=== PATIENT | male | born 1955 | race Caucasian/White ===

== ENCOUNTER 2023-03-26 17:05 | Inpatient (IN) | payer BC, OTHER ==
[2023-03-26] MEDS ORDERED: ASPIRIN 81 MG CHEWABLE TABLET ONE (17:46)
[2023-03-26 17:54] LABS: Absolute Lymphocytes (CBC) 2.5 K/uL (0.7-4.9); Hematocrit 45.4 % (39.6-49.0); Lymphocytes % 32.1 % (15.3-44.8); MCV 89.3 fL (80-100); Platelets 190 thou/uL (152-406); RBC Red Blood Cell Count 5.08 M/uL (4.33-5.43)
[2023-03-26 17:59] LABS: Protime INR 0.99
[2023-03-26 18:14] LABS: ALT/SGPT 34 U/L (16-61); AST/SGOT 17 U/L (15-37); Albumin 3.9 g/dL (3.4-5.0); Alkaline Phosphatase 46 U/L (45-117); BUN Blood Urea Nitrogen 17 mg/dL (7-18); Bicarbonate 27 mEq/L (21-32); Bilirubin Total 0.4 mg/dL (0.2-1.0); Glomerular Filtration Rate 84 ml/min (=/>90); Glucose Level 139 mg/dL (74-106); Magnesium 2.2 mg/dL (1.6-2.4); NT PRO-BNP 132 pg/mL (<125); Potassium 3.8 mEq/L (3.5-5.1); Protein, Total 7.5 g/dL (6.4-8.2); Sodium Level 136 mEq/L (136-145)
--- NOTE | 2023-03-26 18:21 | RAD REPORT ---
EXAM DESCRIPTION: Ricky Single View03/26/2023 5:57 pm CLINICAL HISTORY: Chest pain COMPARISON: none FINDINGS: The lungs appear clear of acute infiltrate. The heart appears borderline enlarged IMPRESSION: No acute abnormalities displayed
[2023-03-26 18:27] LABS: Bilirubin Direct < 0.1 mg/dL (0-0.2); Bilirubin Indirect, Calculated ND mg/dL (0.2-0.8)
[2023-03-26 18:29] LABS: Troponin High Sensitivity 63.4 pg/mL (<58.9)
--- NOTE | 2023-03-26 18:38 | ER ---
Nurse's Notes [facility] Name: Nir Kang Age: 68 yrs Sex: Male : 1955 Arrival Date: 03/26/2023 Time: 17:05 Bed 3 Private MD: Diagnosis: Unstable angina Presentation: 03/26 17:18 Chief complaint: Patient states: Chest pain to the center of his chest that radiates to cm10 his throat onset today at 1440. Pt states that he was laying in bed on his stomach when it began. Pt's O2 sat 100% on RA but requesting to be put on oxygen. Coronavirus screen: Client denies travel out of the [place] in the last 14 days. Ebola Screen: Patient denies travel to an Ebola-affected area in the 21 days before illness onset. No symptoms or risks identified at this time. Initial Sepsis Screen: Does the patient meet any 2 criteria? No. Patient's initial sepsis screen is negative. Does the patient have a suspected source of infection? No. Patient's initial sepsis screen is negative. Risk Assessment: Do you want to hurt yourself or someone else? Patient reports desire/thoughts of hurting themselves or someone else. Provider notified. Onset of symptoms was March 26, 2023. 17:18 Method Of Arrival: Ambulatory cm10 17:18 Acuity: DAGMAR 2 cm10 Historical: - Allergies: 17:20 No Known Allergies; cm10 - PMHx: 17:20 Diabetes mellitus; cm10 18:02 Hypercholesterolemia; sb4 - PSHx: 17:20 None; cm10 - Immunization history:: Adult Immunizations unknown. - Social history:: Smoking status: unknown. - Family history:: Father has/had heart disease. Screenin:25 [facility] ED Fall Risk Assessment (Adult) History of falling in the last 3 months, aa5 including since admission No falls in past 3 months (0 pts) Confusion or Disorientation No (0 pts) Intoxicated or Sedated No (0 pts) Impaired Gait No (0 pts) Mobility Assist Device Used No (0 pt) Altered Elimination No (0 pt) Score/Fall Risk Level 0 - 2 = Low Risk Oriented to surroundings, Maintained a safe environment, Educated pt \T\ family on fall prevention, incl call for assistance when getting out of bed. Abuse screen: Denies threats or abuse. Nutritional screening: No deficits noted. Tuberculosis screening: No symptoms or risk factors identified. Assessment: 17:25 General: Appears comfortable, Behavior is calm, cooperative. Pain: Complains of pain in aa5 chest Pain currently is 0 out of 10 on a pain scale. Pain began today Is episodic. Neuro: Level of Consciousness is awake, alert, obeys commands, Oriented to person, place, time, situation. Cardiovascular: Heart tones S1 S2 present Rhythm is regular. Respiratory: Airway is patent Respiratory effort is even, unlabored, Respiratory pattern is regular, symmetrical, Breath sounds are clear bilaterally. GI: Abdomen is round non-distended, Bowel sounds present X 4 quads. Abd is soft and non tender X 4 quads. Reports nausea with chest pain earlier today. Patient currently denies nausea, vomiting. : No signs and/or symptoms were reported regarding the genitourinary system. EENT: Reports sore throat . Derm: Skin is pink, warm \T\ dry. Musculoskeletal: Range of motion: intact in all extremities. 18:45 Reassessment: Patient is alert, oriented x 3, equal unlabored respirations, skin aa5 warm/dry/pink. Patient denies pain at this time. 20:05 General: Appears in no apparent distress. comfortable, Behavior is calm, cooperative. lg3 Pain: Denies pain. Neuro: No deficits noted. Brown Agitation-Sedation Scale (RASS): 0 - Alert and Calm Level of Consciousness is awake, alert, obeys commands, Oriented to person, place, time, situation. Cardiovascular: No deficits noted. Denies chest pain, shortness of breath, Capillary refill < 3 seconds Clubbing of nail beds is absent JVD is absent Patient's skin is warm and dry. Respiratory: No deficits noted. Airway is patent Respiratory effort is even, unlabored, Respiratory pattern is regular, symmetrical, Breath sounds are clear bilaterally. GI: No deficits noted. No signs and/or symptoms were reported involving the gastrointestinal system. Abdomen is round non-distended. : No deficits noted. No signs and/or symptoms were reported regarding the genitourinary system. EENT: No deficits noted. No signs and/or symptoms were reported regarding the EENT system. Derm: No deficits noted. No signs and/or symptoms reported regarding the dermatologic system. Skin is intact, is healthy with good turgor, Skin is dry, Skin is normal, Skin temperature is warm. Musculoskeletal: No deficits noted. No signs and/or symptoms reported regarding the musculoskeletal system. Circulation, motion, and sensation intact. Range of motion: intact in all extremities. 20:38 General: attempted to call report. nurse not available and will call back per lg3 Vital Signs: 17:18 BP 164 / 118; Pulse 78; Resp 18; Temp 97.7; Pulse Ox 100% ; Weight 105.23 kg; Height 5 cm10 ft. 10 in. ; Pain 10/10; 17:45 BP 157 / 97; Pulse 72; Resp 18 S; Pulse Ox 100% on 2 lpm NC; Pain 0/10; aa5 18:45 BP 153 / 83; Pulse 71; Resp 18 S; Pulse Ox 99% on 2 lpm NC; aa5 20:05 BP 156 / 82; Pulse 72; Resp 21 S; Pulse Ox 100% on 2 lpm NC; Pain 0/10; lg3 17:18 Body Mass Index 33.29 (105.23 kg, 177.8 cm) cm10 17:18 Pain Scale: Adult cm10 17:45 Pain Scale: Adult aa5 20:05 Pain Scale: Adult lg3 ED Course: 17:06 Patient arrived in ED. mg5 17:18 Bernardo Rudolph MD is Attending Physician. addis 17:18 Zofia Ruvalcaba PA-C is PHCP. sb4 17:19 Zofia Ruvalcaba PA-C is PHCP. sb4 17:19 Bernardo Rudolph MD is Attending Physician. sb4 17:20 Triage completed. cm10 17:21 Arm band placed on Patient placed in an exam room, on a stretcher, on oxygen, on cm10 monitoring engineer, on pulse oximetry. 17:23 Rashida Aguilar RN is Primary Nurse. aa5 17:25 Patient has correct armband on for positive identification. Placed in gown. Bed in low aa5 position. Call light in reach. Side rails up X2. Client placed on continuous cardiac and pulse oximetry monitoring. NIBP monitoring applied. 17:59 XRAY Chest (1 view) In Process Unspecified. EDMS 18:37 Aric Palomo MD is Hospitalizing Provider. sb4 19:10 Report given to BENJAMIN Ruiz and BENJAMIN Degroot. aa5 20:05 No provider procedures requiring assistance completed. lg3 20:10 Inserted 20 LAC inserted by previous shift. lg3 21:03 Provided Education on: need for admit . lg3 21:03 Patient admitted, IV remains in place. lg3 Administered Medications: 17:30 Drug: Aspirin PO Chewable Tablet 324 mg Route: PO; aa5 20:08 Follow up: Response: No adverse reaction lg3 19:06 Drug: Enoxaparin Sub-Q 1 mg/kg Route: Sub-Q; Site: left lower abdomen; aa5 20:07 Follow up: Response: No adverse reaction lg3 Medication: 20:05 VIS not applicable for this client. lg3 Outcome: 18:37 Decision to Hospitalize by Provider. sb4 21:02 Admitted to Med/surg accompanied by tech, via wheelchair, room 230, with chart, Report lg3 called to Uziel ALEXANDER 21:02 Condition: stable 21:02 Instructed on the need for admit. 21:13 Patient left the ED. as6 Signatures: Dispatcher [employer] EDMS Bernardo Rudolph MD MD cha Calderon, Audri, RN RN aa5 Mikayla Magana, RN RN lg3 Joseph Guerrero RN RN as6 Zofia Ruvalcaba PACyril PA-Sumeet sb4 Caity Fisher, RN RN cm10 Anna Villagomez mg5 Corrections: (The following items were deleted from the chart) 17:21 17:20 PMHx: None; cm10 cm10 19:11 17:45 BP 157 / 97; Pulse 72bpm; Resp 18bpm; Spontaneous; Pulse Ox 100% RA; Pain 0/10, aa5 Adult; aa5 20:42 20:38 General: attempted to call report. nurse not available and will call back. lg3 lg3
--- NOTE | 2023-03-26 18:38 | EDPHYS ---
Physician Documentation [facility] Name: Nir Kang Age: 68 yrs Sex: Male : 1955 Arrival Date: 03/26/2023 Time: 17:05 Bed 3 Private MD: ED Physician Bernardo Rudolph HPI: 03/26 18:01 This 68 yrs old Male presents to ER via Ambulatory with complaints of Severe Chest Pain.sb4 18:01 Onset: The symptoms/episode began/occurred yesterday. Patient states that yesterday he sb4 was playing [employer] golf when he started experiencing some substernal chest pain that radiated to his throat. States that it resolved after a while and he went home. Today he was riding his bike and started experiencing the same chest pain but it went away. Then he went home when he was laying down he start experiencing chest pain again with associated diaphoresis and decided to come to the ED for evaluation. Historical: - Allergies: 17:20 No Known Allergies; cm10 - PMHx: 17:20 Diabetes mellitus; cm10 18:02 Hypercholesterolemia; sb4 - PSHx: 17:20 None; cm10 - Immunization history:: Adult Immunizations unknown. - Social history:: Smoking status: unknown. - Family history:: Father has/had heart disease. ROS: 18:02 Constitutional: Negative for fever, chills, and weight loss, Eyes: Negative for injury, sb4 pain, redness, and discharge, ENT: Negative for injury, pain, and discharge, Respiratory: Negative for shortness of breath, cough, wheezing, and pleuritic chest pain, Abdomen/GI: Negative for abdominal pain, nausea, vomiting, diarrhea, and constipation, MS/Extremity: Negative for injury and deformity, Skin: Negative for injury, rash, and discoloration, Neuro: Negative for headache, weakness, numbness, tingling, and seizure. 18:02 Cardiovascular: Positive for chest pain, Negative for edema, orthopnea, palpitations. Exam: 18:02 Constitutional: This is a well developed, well nourished patient who is awake, alert, sb4 and in no acute distress. Head/Face: Normocephalic, atraumatic. Eyes: Extra-ocular motions intact. Periorbital areas with no swelling, redness, or edema. Chest/axilla: Normal chest wall appearance and motion. Nontender with no deformity. No lesions are appreciated. Cardiovascular: Regular rate and rhythm with a normal S1 and S2. Respiratory: Lungs have equal breath sounds bilaterally, clear to auscultation and percussion. No rales, rhonchi or wheezes noted. No increased work of breathing, no retractions or nasal flaring. Abdomen/GI: Soft, non-tender, no distension. Skin: Warm, dry with normal turgor. Normal color with no rashes, no lesions, and no evidence of cellulitis. MS/ Extremity: Pulses equal, no cyanosis. Neurovascular intact. Full, normal range of motion. Neuro: Awake and alert, GCS 15, oriented to person, place, time, and situation. Cranial nerves II-XII grossly intact. Motor strength 5/5 in all extremities. Sensory grossly intact. Cerebellar exam normal. Normal gait. Vital Signs: 17:18 BP 164 / 118; Pulse 78; Resp 18; Temp 97.7; Pulse Ox 100% ; Weight 105.23 kg; Height 5 cm10 ft. 10 in. ; Pain 10/10; 17:45 BP 157 / 97; Pulse 72; Resp 18 S; Pulse Ox 100% on 2 lpm NC; Pain 0/10; aa5 18:45 BP 153 / 83; Pulse 71; Resp 18 S; Pulse Ox 99% on 2 lpm NC; aa5 20:05 BP 156 / 82; Pulse 72; Resp 21 S; Pulse Ox 100% on 2 lpm NC; Pain 0/10; lg3 17:18 Body Mass Index 33.29 (105.23 kg, 177.8 cm) cm10 17:18 Pain Scale: Adult cm10 17:45 Pain Scale: Adult aa5 20:05 Pain Scale: Adult lg3 MDM: 17:19 Patient medically screened. sb4 18:02 Differential diagnosis: acute PR, aortic dissection, angina, GERD, nonspecific chest sb4 pain. 18:35 Data reviewed: vital signs, nurses notes, lab test result(s), EKG, radiologic studies, sb4 and as a result, I will admit patient. Consideration of Admission/Observation Patient was admitted/placed on observation. Management of patient was discussed with the following: Hospitalist: Alli Wyatt NP. Care significantly affected by the following chronic conditions: Diabetes. Scoring Tools HEART Score: History: ECG: Age: Risk Factors: > or = 3 Risk factors for atherosclerotic disease (2), Troponin: Total Score = 5. Counseling: I had a detailed discussion with the patient and/or guardian regarding: the historical points, exam findings, and any diagnostic results supporting the discharge/admit diagnosis, the presence of at least one elevated blood pressure reading (>120/80) during this emergency department visit, lab results, radiology results, the need for further work-up and treatment in the hospital. 03/26 17:26 Order name: Basic Metabolic Panel; Complete Time: 18:33 sb4 03/26 17:26 Order name: CBC with Diff; Complete Time: 17:59 sb4 03/26 17:26 Order name: D-Dimer; Complete Time: 18:00 sb4 03/26 17:26 Order name: LFT's; Complete Time: 18:33 sb4 03/26 17:26 Order name: Magnesium; Complete Time: 18:33 sb4 03/26 17:26 Order name: NT PRO-BNP; Complete Time: 18:33 sb4 03/26 17:26 Order name: PT-INR; Complete Time: 18:00 sb4 03/26 17:26 Order name: Troponin HS; Complete Time: 18:33 sb4 03/26 17:26 Order name: XRAY Chest (1 view); Complete Time: 18:22 sb4 03/26 17:26 Order name: EKG; Complete Time: 17:27 sb4 03/26 17:26 Order name: Cardiac monitoring; Complete Time: 17:27 sb4 03/26 17:26 Order name: EKG - Nurse/Tech; Complete Time: 17:35 sb4 03/26 17:26 Order name: IV Saline Lock; Complete Time: 17:35 sb4 03/26 17:26 Order name: Labs collected and sent; Complete Time: 17:35 sb4 03/26 17:26 Order name: O2 Per Protocol; Complete Time: 17:27 sb4 03/26 17:26 Order name: O2 Sat Monitoring; Complete Time: 17:27 sb4 EC:35 Rate is 65 beats/min. Rhythm is regular, Normal Sinus Rhythm with PACs. AL interval is sb4 normal at 144 msec. QRS interval is normal at 108 msec. QT interval is normal at 414 msec. No Q waves. T waves are Normal. No ST changes noted. Clinical impression: Normal ECG. Interpreted by me. Reviewed by me. Administered Medications: 17:30 Drug: Aspirin PO Chewable Tablet 324 mg Route: PO; aa5 20:08 Follow up: Response: No adverse reaction lg3 19:06 Drug: Enoxaparin Sub-Q 1 mg/kg Route: Sub-Q; Site: left lower abdomen; aa5 20:07 Follow up: Response: No adverse reaction lg3 Disposition Summary: 03/26/23 18:37 Hospitalization Ordered Hospitalization Status: Inpatient Admission sb4 Provider: Aric Palomo sb4 Location: Telemetry/MedSur (Inpatient) sb4 Condition: Fair sb4 Problem: new sb4 Symptoms: are resolved sb4 Bed/Room Type: Standard sb4 Room Assignment: 230(03/26/23 20:32) rv1 Diagnosis - Unstable angina sb4 Forms: - Medication Reconciliation Form sb4 - SBAR form sb4 Signatures: Dispatcher [employer] EDRashida Melendez RN RN aa5 Alli Wyatt, OUTREACH ASSOCIATE-C OUTREACH ASSOCIATE-Cla1 Zofia Ruvalcaba PA-C PA-Sumeet sb4 Nicole Delgado rv1 Caity Fisher RN RN cm10 Mikayla Magana RN lg3 Corrections: (The following items were deleted from the chart) 17:21 17:20 PMHx: None; cm10 cm10 20:32 18:37 sb4 rv1
[2023-03-26] MEDS ORDERED: ENOXAPARIN 100 MG/ML SYR SQ ONE (19:07)
--- NOTE | 2023-03-26 19:13 | P.HP ---
Certification for Inpatient Patient admitted to: Inpatient With expected LOS: >2 Midnights Patient will require the following post-hospital care: None Practitioner: I am a practitioner with admitting privileges, knowledge of patient current condition, hospital course, and medical plan of care. Services: Services provided to patient in accordance with Admission requirements found in Title 42 Section 412.3 of the Code of Federal Regulations Patient History Date of Service: 03/26/23 Reason for admission: NSTEMI History of Present Illness: 68-year-old male with history of hyperlipidemia, diet-controlled diabetes presents to the emergency department with chief complaint of chest pain. He reports he had an episode while playing [employer] golf recently when he began to have chest pain relieved by rest, went on a bike ride today began to have chest pain again relieved by rest but while he was at home and lying down he began to have severe pain to his chest associated with diaphoresis that reason he came to the emergency department. He was evaluated in the emergency department his initial high-sensitivity troponin was 63.4, EKG not concerning for STEMI glucose was 139 chest x-ray unremarkable, D-dimer negative, last stress test was greater than 5 years ago has never had a heart catheterization does not follow with a metaphysician. Currently his chest pain is relieved he will need to be admitted for NSTEMI, unstable angina. - Past Medical/Surgical History -: Hyperlipidemia -: Diabetes mellitus type 2diet controlled -: None Psychosocial/ Personal History: Lives at home with family - Family History Father -: Heart disease Mother -: Cancer - Social History Smoking Status: Never smoker Alcohol use: No CD- Drugs: No Caffeine use: Yes Place of Residence: Home Review of Systems 10-point ROS is otherwise unremarkable Cardiovascular: Chest Pain, Other (Diaphoresis) Physical Examination - Physical Exam General: Alert, In no apparent distress, Oriented x3 HEENT: Atraumatic, PERRLA, Mucous membr. moist/pink, EOMI, Sclerae nonicteric Neck: Supple, 2+ carotid pulse no bruit, No LAD, Without JVD or thyroid abnormality Respiratory: Clear to auscultation bilaterally, Normal air movement Cardiovascular: Regular rate/rhythm, Normal S1 S2 Gastrointestinal: Normal bowel sounds, No tenderness Musculoskeletal: No tenderness Integumentary: No rashes Neurological: Normal gait, Normal speech, Normal strength at 5/5 x4 extr, Normal tone, Normal affect Lymphatics: No axilla or inguinal lymphadenopathy - Studies Laboratory Data (last 24 hrs) 03/26/23 03/26/23 03/26/23 17:29 17:29 17:29 WBC 7.70 Hgb 14.7 Hct 45.4 Plt Count 190 PT 10.9 INR 0.99 Sodium 136 Potassium 3.8 BUN 17 Creatinine 0.97 Glucose 139 H Magnesium 2.2 Total Bilirubin 0.4 AST 17 ALT 34 Alkaline Phosphatase 46 Assessment and Plan - Plan Assessment: NSTEMI/unstable angina Hyperlipidemia Diabetes mellitus type 2diet controlled Plan: NSTEMI/unstable angina Trend troponins, monitor on telemetry, aspirin, statin, beta-ngozi, therapeutic Lovenox. N.p.o. after midnight, cardiology consult. Echocardiogram ordered. Hyperlipidemia Has not been compliant with statins, will obtain lipid panel, continue with atorvastatin. Diabetes mellitus type 2diet controlled Reports A1c on February 25 was 5.7, monitor glucose levels with labs, start sliding scale necessary. DVT PPX: Therapeutic Lovenox Code status: Full Discharge Plan: Home Plan to discharge in: 48 Hours - Advance Directives Does patient have a Living Will: No Does patient have a Durable POA for Healthcare: No - Code Status/Comfort Care Code Status Assessed: Yes (Full code) Critical Care: No Time Spent Managing Pts Care (In Minutes): 55
[2023-03-26] MEDS ORDERED: ONDANSETRON 4 MG/2 ML VIAL IV PRN (21:44)
[2023-03-26] MEDS ORDERED: MORPHINE 2 MG/ML SYR IV PRN (21:44)
[2023-03-26] MEDS: ATORVASTATIN 40 MG TAB PO SCH (22:48)
[2023-03-26] MEDS: NA CHLORIDE 0.9% 1,000 ML IV SCH (22:49)
[2023-03-27 04:00] LABS: Absolute Lymphocytes (CBC) 2.3 K/uL (0.7-4.9); Hematocrit 40.7 % (39.6-49.0); Lymphocytes % 42.4 % (15.3-44.8); MCV 88.4 fL (80-100); MPV 8.7 fL (7.6-11.3); Platelets 152 thou/uL (152-406); RBC Red Blood Cell Count 4.61 M/uL (4.33-5.43)
[2023-03-27 04:14] LABS: Potassium 3.9 mEq/L (3.5-5.1); Thyroid Stimulating Hormone 3.08 uIU/mL (0.358-3.740)
[2023-03-27 04:20] LABS: Troponin High Sensitivity 224.2 pg/mL (<58.9)
[2023-03-27] MEDS: METOPROLOL TAR 25 MG TAB PO SCH ×2 (05:13→18:00)
[2023-03-27] MEDS: NA CHLORIDE 0.9% 1,000 ML IV SCH (07:44)
[2023-03-27] MEDS ORDERED: POTASSIUM CL SA 10 MEQ TAB PO ONE (09:00)
[2023-03-27] MEDS: ENOXAPARIN 100 MG/ML SYR SQ SCH ×2 (09:00→19:55)
[2023-03-27] MEDS ORDERED: ENOXAPARIN 40 MG/0.4 ML SQ SCH (09:00)
[2023-03-27] MEDS: ASPIRIN EC 81 MG TAB PO SCH (09:49)
--- NOTE | 2023-03-27 13:15 | P.PN ---
Subjective Date of Service: 03/27/23 Chief Complaint: NSTEMI No acute events overnight. He reports intermittent chest pain, occurring without any obvious inciting or alleviating factors. He denies any shortness of breath or palpitations. He has been NPO in anticipation for [facility]. Review of Systems 10-point ROS is otherwise unremarkable Cardiovascular: Chest Pain Physical Examination - Vital Signs Temperature: 98 F Blood Pressure: 154/82 Pulse: 67 Respirations: 17 Pulse Ox (%): 98 - Physical Exam General: Alert, In no apparent distress, Oriented x3 HEENT: Atraumatic, Mucous membr. moist/pink, Sclerae nonicteric Neck: JVD not distended Respiratory: Clear to auscultation bilaterally, Normal air movement Cardiovascular: No edema, Regular rate/rhythm, Normal S1 S2, No gallops, No rubs, No murmurs Gastrointestinal: Normal bowel sounds, Soft and benign, Non-distended, No tenderness, No rebound, No guarding Musculoskeletal: No clubbing Integumentary: No rashes Neurological: Normal speech, Normal affect - Studies Laboratory Data (last 24 hrs) 03/26/23 03/26/23 03/26/23 17:29 17:29 17:29 WBC 7.70 Hgb 14.7 Hct 45.4 Plt Count 190 PT 10.9 INR 0.99 Sodium 136 Potassium 3.8 BUN 17 Creatinine 0.97 Glucose 139 H Magnesium 2.2 Total Bilirubin 0.4 AST 17 ALT 34 Alkaline Phosphatase 46 Assessment And Plan - Plan # Non-ST Segment Elevation Myocardial Infarction # Hyperlipidemia - Evaluation thus far: - EKG requested - Serial troponin: 63.4 -> 235.8 -> 224.2 - Ordered transthoracic echocardiogram - Chest x-ray = "no acute abnormalities displayed." - D-dimer = <215 - Management plan: - Consult Cardiology and spoke with Dr. Morelos - recommendations appreciated - Recommends [facility] either later today or tomorrow - Continue aspirin, atorvastatin, metoprolol, and enoxaparin - Consider adding WAN-inhibitor/ARB as tolerated # Type II Diabetes Mellitus - Correction scale insulin Aric Palomo M.D.
[2023-03-27] MEDS ORDERED: HEPA 1000U/500MLS 2,000 UNIT/1,000 ML BAG IV ONE (15:37)
[2023-03-27] MEDS ORDERED: LIDOCAINE 1% 20 ML MDV ONE (15:37)
[2023-03-27] MEDS ORDERED: MIDAZOLAM HCL 2 MG/2 ML INJ ONE (15:38)
[2023-03-27] MEDS ORDERED: FENTANYL CITR 100 MCG/2 ML ONE (15:38)
[2023-03-27] MEDS ORDERED: CLOPIDOGREL 75 MG TABLET ONE (15:38)
[2023-03-27] MEDS ORDERED: VERAPAMIL HCL 10 MG/4 ML VIAL IV ONE (15:38)
[2023-03-27] MEDS ORDERED: HEPARIN 5000 UNIT/ML 1 ML VIAL ONE (15:38)
[2023-03-27] MEDS ORDERED: HEPARIN 10,000 UNIT/10 ML VIAL IV ONE (15:39)
[2023-03-27] MEDS ORDERED: FAMOTIDINE 20 MG TAB PO SCH (17:00)
--- NOTE | 2023-03-27 17:34 | EKG ---
Test Date: 2023-03-26 Test Time: 17:32:00 Fork Operator: STEPHENIE MEASUREMENT RESULTS: Intervals: Rate: 65 UT: 144 QRSD: 108 QT: 414 QTc: 430 Holiday: P: 60 UT: 144 QRS: 58 T: 62 INTERPRETIVE STATEMENTS: Sinus rhythm with premature atrial complexes Otherwise normal ECG Compared to ECG 07/27/2014 14:46:15 Atrial premature complex(es) now present Electronically Signed On 03-27-23 17:31:44 CDT by Jose Morelos
[2023-03-27] MEDS: ATORVASTATIN 40 MG TAB PO SCH (20:01)
[2023-03-27 21:29] VITALS: BMI 33.8
[2023-03-27] MEDS ORDERED: HEPARIN/D5W 25,000 UNIT/500 ML BAG IV SCH (21:30)
[2023-03-27] MEDS: HEPARIN/D5W 25,000 UNIT/500 ML BAG IV SCH (21:39)
[2023-03-28 02:37] LABS: Potassium 3.8 mEq/L (3.5-5.1)
[2023-03-28] MEDS: METOPROLOL TAR 25 MG TAB PO SCH ×2 (06:19→17:40)
[2023-03-28] MEDS ORDERED: POTASSIUM CL SA 10 MEQ TAB PO ONE (09:00)
[2023-03-28] MEDS: ASPIRIN EC 81 MG TAB PO SCH (11:12)
--- NOTE | 2023-03-28 19:09 | P.PN ---
Subjective Date of Service: 03/28/23 Chief Complaint: NSTEMI Currently, no cath record is avaiable in [facility]. However, per Mr. Kang, a stent was placed yesterday evening and Dr. Morelos is planning for a staged procedure tomorrow. He reports that his chest pain has completely subsided. He denies any shortness of breath or palpitations. Review of Systems 10-point ROS is otherwise unremarkable Physical Examination - Vital Signs Temperature: 97 F Blood Pressure: 142/82 Pulse: 79 Respirations: 20 Pulse Ox (%): 94 Assessment And Plan - Plan - Physical Exam General: Alert, In no apparent distress, Oriented x3 HEENT: Atraumatic, Mucous membr. moist/pink, Sclerae nonicteric Neck: JVD not distended Respiratory: Clear to auscultation bilaterally, Normal air movement Cardiovascular: No edema, Regular rate/rhythm, No murmurs Gastrointestinal: Normal bowel sounds, Soft, Non-distended, No tenderness Musculoskeletal: No clubbing Integumentary: No rashes Neurological: Normal speech, Normal affect # Non-ST Segment Elevation Myocardial Infarction # Hyperlipidemia - Evaluation thus far: - EKG requested - Serial troponin: 63.4 -> 235.8 -> 224.2 - Ordered transthoracic echocardiogram - Chest x-ray = "no acute abnormalities displayed." - D-dimer = <215 - Management plan: - Consult Cardiology and spoke with Dr. Morelos - recommendations appreciated - S/P PCI yesterday - Plan for staged-PCI tomorrow - Continue aspirin, atorvastatin, metoprolol, and enoxaparin - Consider adding WAN-inhibitor/ARB as tolerated # Type II Diabetes Mellitus - Correction scale insulin Aric Palomo M.D.
[2023-03-28] MEDS: HEPARIN/D5W 25,000 UNIT/500 ML BAG IV SCH (19:58)
[2023-03-28] MEDS: ATORVASTATIN 40 MG TAB PO SCH (20:00)
[2023-03-29 05:23] VITALS: O2SAT 94
[2023-03-29] MEDS: METOPROLOL TAR 25 MG TAB PO SCH ×2 (05:23→17:06)
--- NOTE | 2023-03-29 06:52 | ECHO ---
HEIGHT: 5 ft 10 in WEIGHT: 235 lb 12.8 oz DATE OF STUDY: 03/28/[address]: Alli Wyatt NP 2-DIMENSIONAL: YES M.MODE: YES DOPPLER: YES COLOR FLOW: YES TDS: PORTABLE: YES DEFINITY: BUBBLE STUDY: DIAGNOSIS: NON ST ELEVATION MYOCARDIAL INFARCTION CARDIAC HISTORY: CATHERIZATION: SURGERY: PROSTHETIC VALVE: PACEMAKER: MEASUREMENTS (cm) DIASTOLIC (NORMALS) SYSTOLIC (NORMALS) IVSd 1.1 (0.6-1.2) LA Diam 3.1 (1.9-4.0) LVEF 72% LVIDd 4.0 (3.5-5.7) LVIDs 2.4 (2.0-3.5) %FS 41% LVPWd 1.2 (0.6-1.2) Ao Diam 3.3 (2.0-3.7) 2 DIMENSIONAL ASSESSMENT: RIGHT ATRIUM: NORMAL LEFT ATRIUM: NORMAL RIGHT VENTRICLE: NORMAL LEFT VENTRICLE: NORMAL TRICUSPID VALVE: NORMAL MITRAL VALVE: MILD MITRAL REGURGITATION PULMONIC VALVE: NORMAL AORTIC VALVE: NORMAL PERICARDIAL EFFUSION: NONE AORTIC ROOT: NORMAL LEFT VENTRICULAR WALL MOTION: NORMAL DOPPLER/COLOR FLOW: MILD MITRAL REGURGITATION COMMENTS: 1. NORMAL LEFT VENTRICULAR EJECTION FRACTION 55-60% 2. NORMAL WALL MOTION 3. GRADE I DIASTOLIC DYSFUNCTION 4. MILD MITRAL REGURGITATION TECHNOLOGIST: KARMEN EMERSON
[2023-03-29 07:24] LABS: Potassium 3.8 mEq/L (3.5-5.1)
[2023-03-29] MEDS: ASPIRIN EC 81 MG TAB PO SCH (08:55)
[2023-03-29] MEDS: HEPARIN/D5W 25,000 UNIT/500 ML BAG IV SCH (13:51)
[2023-03-29 16:23] VITALS: BP 149/81; TEMP 97.8
--- NOTE | 2023-03-29 17:30 | P.DS ---
Admission Date: 03/26/23 Discharge Date: 03/29/23 Disposition: ROUTINE DISCHARGE Discharge Condition: GOOD Reason for Admission: NSTEMI Consultations: 1. Cardiology Procedures: - 03/27/2023 - Left Heart Catheterization with PCI Hospital Course: DIAGNOSES: # Non-ST Segment Elevation Myocardial Infarction # Type II Diabetes Mellitus # Hyperlipidemia HOSPITAL COURSE: Mr. Nir Kang is a pleasant 68 year old male with a past medical history significant for type 2 diabetes mellitus and hyperlipidemia who was admitted to the [facility] on 03/26/2023 for chest pain. He was admitted to the Medicine service. Upon further evaluation, his EKG was without STEMI criteria. His chest x-ray revealed, "no acute abnormalities displayed." His d-dimer was <215. His serial troponin was 63.4 -> 235.8 -> 224.2. His transthoracic echocardiogram revealed, "1. normal left ventricular ejection fraction 55-60% 2. normal wall motion 3. grade I diastolic dysfunction 4. mild mitral regurgitation." Cardiology was consulted and he was evaluated by Dr. Morelos. On 03/27/2023, he underwent a left heart catheterization with PCI placement. Following the procedure, he is now completely chest pain-free. The initial plan was for a staged PCI procedure today; however, due to unforseen circumstances, this could not be completed. He would have to wait until 04/01/2023 to have this staged procedure done. He stated that he would like to go home and schedule this as an outpatient. Dr. Morelos re-evaluated him this afternoon and cleared him for discharge with outpatient follow-up. He recommended discontinuing heparin drip and giving clopidogrel 600 mg x 1 prior to discharge. He recommended discharge with aspirin, atorvastatin, clopidogrel, and metoprolol. WAN-inhibitor/ARB to be considered as an outpatient if blood pressure allows. On 03/29/2023, he was seen on rounds and deemed medically stable for discharge. He was discharged with instructions to schedule follow-up appointments with his PCP (MCKAYLA Bear) and with Cardiology (Dr. Morelos). He was provided prescriptions for metoprolol, atorvastatin, and clopidogrel. He was given the opportunity to ask questions and reported no further questions. Furthermore, all questions were answered to the best of my ability. A copy of this discharge summary will be sent to the above providers to facilitate continuity of care. Today, I personally spent 20 minutes on his case, of which greater than 50% of the time was spent in patient education, counseling, and coordination of care as described above. - Physical Exam General: Alert, In no apparent distress, Oriented x3 HEENT: Atraumatic, Mucous membr. moist/pink, Sclerae nonicteric Neck: JVD not distended Respiratory: Clear to auscultation bilaterally, Normal air movement Cardiovascular: No edema, Regular rate/rhythm, No murmurs Gastrointestinal: Normal bowel sounds, Soft, Non-distended, No tenderness Musculoskeletal: No clubbing Integumentary: No rashes Neurological: Normal speech, Normal affect Vital Signs/Physical Exam: Temp Pulse Resp BP Pulse Ox 97.8 F 77 16 149/81 H 98 03/29/23 16:00 03/29/23 17:06 03/29/23 16:00 03/29/23 17:06 03/29/23 16:00 Laboratory Data at Discharge: WBC 5.30 thou/uL (4.3-10.9) 03/27/23 03:16 Hgb 13.5 g/dL (13.6-17.9) L D 03/27/23 03:16 Hct 40.7 % (39.6-49.0) 03/27/23 03:16 Plt Count 152 thou/uL (152-406) 03/27/23 03:16 PT 10.9 SECONDS (9.5-12.5) 03/26/23 17:29 INR 0.99 03/26/23 17:29 APTT 68.8 SECONDS (24.3-36.9) H 03/29/23 02:12 Sodium 136 mEq/L (136-145) 03/29/23 06:26 Potassium 3.8 mEq/L (3.5-5.1) 03/29/23 06:26 BUN 17 mg/dL (7-18) 03/29/23 06:26 Creatinine 0.93 mg/dL (0.70-1.30) 03/29/23 06:26 Glucose 120 mg/dL (74-106) H 03/29/23 06:26 Magnesium 2.2 mg/dL (1.6-2.4) 03/26/23 17:29 Total Bilirubin 0.4 mg/dL (0.2-1.0) 03/26/23 17:29 AST 17 U/L (15-37) 03/26/23 17:29 ALT 34 U/L (16-61) 03/26/23 17:29 Alkaline Phosphatase 46 U/L (45-117) 03/26/23 17:29 Triglycerides 271 mg/dL (<150) H 03/27/23 03:16 Cholesterol 207 mg/dL (<200) H 03/27/23 03:16 HDL Cholesterol 55 mg/dL (40-60) 03/27/23 03:16 Cholesterol/HDL Ratio 3.76 03/27/23 03:16 Home Medications: Aspirin [Aspirin EC 81 MG] 81 mg PO DAILY #1 03/29/23 Atorvastatin Calcium [Lipitor] 40 mg PO BEDTIME #30 tab 03/29/23 Clopidogrel Bisulfate [Plavix] 75 mg PO DAILY #30 tab 03/29/23 Metoprolol Tartrate [Lopressor*] 25 mg PO BID 6AM 6PM #60 tab 03/29/23 New Medications: Aspirin [Aspirin EC 81 MG] 81 mg PO DAILY #1 Atorvastatin Calcium [Lipitor] 40 mg PO BEDTIME #30 tab Metoprolol Tartrate [Lopressor*] 25 mg PO BID 6AM 6PM #60 tab Clopidogrel Bisulfate [Plavix] 75 mg PO DAILY #30 tab Physician Discharge Instructions: 1. Please call and schedule a follow-up appointment with your PCP (MCKAYLA Bear) in 3-5 days 2. Please call and schedule a follow-up appointment with Cardiology (Dr. Morelos) in 3 days - He is planning to do your heart catheterization procedure next week - Please have him refill your heart medications (metoprolol, atrovastatin, clopidogrel) Diet: AHA Activity: Ad faisal Followup: Patti Bear NP [OUTSIDE PHYSICIAN] - Jose Morelos MD [ACTIVE - CAN ADMIT] - Time spent managing pt's care (in minutes): 20
[2023-03-29] MEDS ORDERED: CLOPIDOGREL 75 MG TABLET PO ONE (17:59)
--- NOTE | 2023-03-30 16:42 | OP ---
Date of Procedure: 03/27/2023 Surgeon: CARMELA SAM Procedures Performed: 1.Selective coronary angiogram. 2.Left heart catheterization. 3.PCI of critical mid OM1 disease. I used 2.5 x 24 mm Synergy drug-eluting stent. Indication: Mar-FH-qulpdzufq myocardial infarction. Access: Right radial artery 6-Romanian closed with TR band. Complications: None. Bleeding: Less than 20 mL. Anesthesia: Total sedation time was 1 hour. Description Of Procedure: After risks, benefits, and alternatives were explained, patient agreed to the procedure and signed informal consent. Patient was brought into cardiac catheterization laborato , prepped and draped in usual sterile fashion. Then I accessed right radial artery using pediatric micropuncture kit, placed 6-Romanian Slender sheath and took 5 Romanian [place] 4 catheter into the aortic root, engaged left main and took standard views and then engaged the RCA, took standard views and th e catheter was pushed over the wire into the LV, measured the LVEDP and pullback did not record any g radient. Then, we gave systemic heparin to assure ACT level above 250 and loaded with Plavix and asp irin and then took a 6-Romanian EBU 3.5 guide into the aortic root, engaged the left main, took short r un-through wire into the left main, then the circumflex passing the area of stenosis of the OM and th e lesion was dilated using a 2.5 balloon. The lesion expanded very well and then I placed 2.5 x 24 m m Synergy drug-eluting stent with excellent angiographic results and then I removed the wire and the final angiogram was satisfactory. I removed the guide and the sheath and placed TR band with good he mostasis. Findings: 1.Left main is normal. 2.LAD; proximal 40% stenosis, it is rather small vessel. In the mid segment after diagonal 2 branch , there is a focal 80% stenosis and there is a proximal 70% stenosis of the diagonal branch and there were 2 other small vessels, they were about 2.5 mm maximum. 3.Left circumflex, proximal 30% stenosis and then 1 branch had a mid long 80% stenosis with a focal 99% stenosis, status post successful PCI as outlined above. 4.RCA; there is a dominant circulation with proximal 30%, distal 60% and the PDA itself has a focal 70% to 80% stenosis. 5.LVEDP normal at 8 mmHg. Conclusion: 1.Severe left circumflex stenosis, which is a culprit, status post successful PCI as above. 2.Severe mid LAD stenosis, which will be treated as a staged PCI in 1 or 2 weeks. Patient is to be continued on aspirin and Plavix and high-dose statin. SR/MODL Voice ID: [id number] Report ID: [id number]
--- NOTE | 2023-03-30 18:30 | CON ---
Date of Consultation: 03/27/2023 Reason For Consultation: Hmc-XH-thftrrblk myocardial infarction. History Of Present Illness: A 68-year-old male, history of hypertension, diabetes, who presented to the emergency room with chest pain. Pain is retrosternal, pressure-like, radiates to the neck and th e jaw with activities, gets better with rest and it has become more aggressive and more frequent. De nies having any shortness of breath, nausea, vomiting, or diaphoresis. Past Medical History: Diabetes, hypertension, and dyslipidemia. Medications: Refer reconciliation sheet for detailed list. Allergies: NO KNOWN DRUG ALLERGIES. Family History: No premature coronary artery disease or cancer. Social History: He does not smoke or drink. Does not use any drugs. Review of Systems: All systems reviewed and they were negative except as mentioned in the HPI. Physical Examination: Vital Signs: Reviewed. Head and Neck: Pupils are equal, reactive to light. Intact eye movements. No JVD. No cervical lym phadenopathy. Neck is supple. Thyroid is not enlarged. Lungs: Clear to auscultation bilaterally. No rhonchi, rales, or crackles. No accessory muscle use. Heart: Regular rate and rhythm. No extra sounds. Abdomen: Soft, nontender. Bowel sounds positive. No organomegaly. No masses or hernia. No rigidi ty or rebound. Extremities: No edema, clubbing, cyanosis. Intact pulses. Skin: No rash. Neurologic: Alert, awake, oriented x3. No acute focal deficits appreciated. Investigations: BUN 13, creatinine 0.82. Troponin peaked at 237, and it is coming down. His hemogl obin is 13.5, white blood cell count is 5.3. Assessment And Recommendation: 1.Bis-RV-mcfrtlqwl myocardial infarction. Continue aspirin and heparin and plan for a coronary merle ogram today. He has very typical symptoms and likely has significant coronary artery disease. 2.Dyslipidemia. Start Lipitor 40 mg at bedtime. Further recommendations after the coronary angiogr am and please obtain an echocardiogram. SR/MODL Voice ID: [id number] Report ID: [id number]
--- NOTE | 2023-03-30 19:27 | PN ---
Date of Progress Note: 03/28/2023 Subjective: Seen by bedside. He is feeling very well. No chest pain or shortness of breath. He is completely asymptomatic. Review of Systems: No chest pain, shortness of breath, orthopnea, or cough. No nausea, vomiting, or diarrhea. All othe r systems were reviewed, they were negative. Physical Examination: Vital Signs: Reviewed. Head and Neck: Pupils are equal, reactive to light. Intact eye movements. No JVD. No cervical lym phadenopathy. Neck is supple. Thyroid is not enlarged. Lungs: Clear to auscultation bilaterally. No rhonchi, wheezing, or crackles. Heart: Regular rate and rhythm. No extra sounds. Abdomen: Soft, nontender. Bowel sounds positive. No organomegaly. No masses or hernia. No rigidi ty or rebound. Extremities: No edema, clubbing, or cyanosis. Intact pulses. Skin: No rashes. No nodules. Neurologic: Alert, awake, oriented x3. No acute focal deficits appreciated. Investigations: Labs reviewed. Assessment And Recommendations: 1.Kpf-SG-nhtuwbvnx myocardial infarction, status post PCI of the culprit vessel. Continue aspirin a nd Plavix and we will plan of doing a PCI of the LAD tomorrow if the schedule allows. Otherwise, we will do it as an outpatient. 2.Dyslipidemia. Continue Lipitor 40 mg q.h.s. 3.Diabetes. Low-calorie diet encouraged and he needs a tighter control of his sugars. SR/MODL Voice ID: [id number] Report ID: [id number]
--- NOTE | 2023-03-30 20:48 | PN ---
Date of Progress Note: 03/29/2023 Subjective: Seen by bedside. He is doing well. No chest pain. It was planned to do a PCI of the L AD today. However, he has been stable, asymptomatic. No chest pain, and likely the culprit vessel w as fixed earlier and due to the equipment operator/laborer/supervisor scheduling, could not get to him today and given that it is the weekend and the patient is asymptomatic, patient wants to be released and to do this as an outpat ient. Review of Systems: No chest pain, shortness of breath, orthopnea, or cough. No nausea, vomiting, or diarrhea. All othe r systems reviewed, they were negative. Objective: Vital Signs: Reviewed. Head and Neck: Pupils are equal, reactive to light. Intact eye movements. No JVD. No cervical lym phadenopathy. Neck is supple. Thyroid is not enlarged. Lungs: Clear to auscultation bilaterally. No rhonchi, wheezing, or crackles. No accessory muscle u se. Heart: Regular rate and rhythm. No extra sounds. Abdomen: Soft, nontender. Bowel sounds positive. No organomegaly. No masses or hernia. No rigidi ty or rebound. Extremities: No edema, clubbing, or cyanosis. Intact pulses. Skin: No rashes. No nodules. Neurologic: Alert, awake, oriented x3. No acute focal deficits appreciated. Investigations: Labs reviewed. Assessment And Recommendations: 1.Zrb-LQ-ghygztsjz myocardial infarction. The culprit was in the OM1 branch, status post PCI. He s till has residual coronary artery disease. Needs revascularization. I could not do the case today d ue to the workload on the equipment operator/laborer/supervisor and it is the weekend. He decided to go home and we will plan to do his PCI of the LAD on Saturday as an outpatient. Patient was instructed to come to the emergency room immediately with any further chest pain. 2.Dyslipidemia. Continue statin. SR/MODL Voice ID: [id number] Report ID: [id number]
== END 2023-03-29 18:23 | disposition home or self-care (01) | DRG 247 ==
LOC: ER 17:05 → ERHOLD 18:53 → 2ND 21:02
PROVIDERS: ADMIT Internal Medicine; ATTEND Internal Medicine
PROC: 027034Z Dilation of Coronary Artery, One Artery with Drug-eluting Intraluminal Device, Percutaneous Approach (ICD-10-PCS; principal; 2023-03-27)
PROC: 4A023N7 Measurement of Cardiac Sampling and Pressure, Left Heart, Percutaneous Approach (ICD-10-PCS; 2023-03-27)
PROC: B2111ZZ Fluoroscopy of Multiple Coronary Arteries using Low Osmolar Contrast (ICD-10-PCS; 2023-03-27)
DX: I21.4 Non-ST elevation (NSTEMI) myocardial infarction (principal); E11.9 Type 2 diabetes mellitus without complications; E78.00 Pure hypercholesterolemia, unspecified; I34.0 Nonrheumatic mitral (valve) insufficiency; I20.0 Unstable angina; Z79.02 Long term (current) use of antithrombotics/antiplatelets; Z79.899 Other long term (current) drug therapy
CPT/HCPCS: 36415; 71045; 76937; 80048; 80061; 80076; 82947; 83735; 83880; 84439; 84443; 84484; 85025; 85347; 85379; 85610; 85730; 93005; 93306; 93458; 96372; 99285; C1725; C1893; C9600; J1644; J1650; J2001; J2250; J3010; J7030; Q9967

== ENCOUNTER 2023-04-01 11:00 | Day surgery (SDC) | payer OTHER ==
[2023-04-01] MEDS ORDERED: NA CHLORIDE 0.9% 500 ML ONE (11:19)
[2023-04-01] MEDS ORDERED: HEPA 1000U/500MLS 2,000 UNIT/1,000 ML BAG IV ONE (12:50)
[2023-04-01] MEDS ORDERED: CLOPIDOGREL 75 MG TABLET ONE (12:51)
[2023-04-01] MEDS ORDERED: FENTANYL CITR 100 MCG/2 ML ONE (12:51)
[2023-04-01] MEDS ORDERED: MIDAZOLAM HCL 2 MG/2 ML INJ ONE (12:51)
[2023-04-01] MEDS ORDERED: ASPIRIN 325 MG TAB ONE (12:51)
[2023-04-01] MEDS ORDERED: VERAPAMIL HCL 10 MG/4 ML VIAL IV ONE (12:51)
[2023-04-01] MEDS ORDERED: HEPARIN 5000 UNIT/ML 1 ML VIAL ONE (12:51)
[2023-04-01] MEDS ORDERED: TICAGRELOR 90 MG TABLET PO ONE (12:52)
[2023-04-01] MEDS ORDERED: LIDOCAINE 1% 20 ML MDV ONE (12:52)
[2023-04-01] MEDS ORDERED: ATROPINE SULF 1 MG/10 ML SYR IV ONE (12:52)
[2023-04-01] MEDS ORDERED: HEPARIN 10,000 UNIT/10 ML VIAL IV ONE (12:52)
[2023-04-01] MEDS ORDERED: FAMOTIDINE 20 MG TAB PO ONE (15:11)
--- NOTE | 2023-04-01 18:35 | OP ---
Date of Procedure: 04/01/2023 Surgeon: CARMELA SAM Procedures Performed: 1.Selective coronary angiogram. 2.PCI of severe mid LAD stenosis. I used proximal to distal 2.75 x 16, then 2.5 x 28 mm Synergy shannan g-eluting stents. Indications: Severe coronary artery disease with recent non-STEMI. Access: Right radial artery 6-Ecuadorean closed with TR band. Complications: None. Bleeding: Less than 50 mL. Anesthesia: Total sedation time was 1 hour, used fentanyl and Versed. Description Of Procedure: After risks, benefits, alternatives explained, the patient agreed to proce dure and signed informed consent. The patient was brought into the cardiac catheterization laborator y, prepped and draped in the usual sterile fashion. Then, I accessed right radial artery using pedia tric micropuncture kit, placed 6-Ecuadorean Slender sheath, took a 6-Ecuadorean XB3.5 left guide into the aor tic root, engaged left main, took standard views and then gave systemic heparin to assure ACT level a rehan 250 and took short Run-Through wire into the LAD, placed it distally and another short Run-Throu gh wire into the diagonal branch. Then, I used a 2.5 balloon to re-dilate the lesion, lesion expande d very well and then I used 2.75 x 60 mm Synergy drug-eluting stent and then I used a 2.5 x 28 mm shannan g-eluting stent in mid to distal LAD to overlap with the first stent, excellent angiographic results at the end. Then, I removed the wires and the guide and the sheath and placed TR band with good hemo stasis. Findings: 1.Left main; normal. 2.LAD; proximal diffuse 40% and then mid has about 20% to 30% and after right at the diagonal 2 bran ch takeoff, there is 90% stenosis, status post successful PCI as above and then there were multiple t andem lesions ranging between 80% to 90%, status post successful PCI as above and then distal LAD is with diffuse 40% to 50% stenosis, but SOFI-3 flow. 3.Left circumflex; ostial 50% and widely patent OM1 stent. 4.Normal LVEDP at 9 mmHg. Conclusion: 1.Severe mid LAD stenosis, status post successful PCI as above. Diagonal 2 branch was mildly jailed first with SOFI-3 flow. 2.Patent left circumflex stent. 3.Moderate coronary artery disease elsewhere. Plan: Aspirin, Plavix, high-dose statin. To follow up with me in the office in 1 week. SR/LUKASZ Voice ID: [id number] Report ID: [id number]
[2023-04-01 19:37] VITALS: TEMP 97.2
[2023-04-01 19:45] VITALS: BP 136/69; O2SAT 99
== END 2023-04-01 18:49 | disposition home or self-care (01) ==
LOC: CCL 11:00
PROVIDERS: ATTEND Internal Medicine
DX: I21.4 Non-ST elevation (NSTEMI) myocardial infarction (principal); I25.10 Atherosclerotic heart disease of native coronary artery without angina pectoris; I10 Essential (primary) hypertension; E11.9 Type 2 diabetes mellitus without complications; E78.5 Hyperlipidemia, unspecified; Z95.5 Presence of coronary angioplasty implant and graft
CPT/HCPCS: 82947 ×2; 93458; C1893; Q9967; C1725; C9600; J1644; J2001; J2250; J3010; J7040; 85347; J0461

== ENCOUNTER 2023-04-01 19:52 | Observation (INO) | payer OTHER ==
--- NOTE | 2023-04-01 21:18 | RAD REPORT ---
EXAM DESCRIPTION: US - Extremity Nonvascular Limited - 04/01/2023 9:05 pm CLINICAL HISTORY: Arm hematoma COMPARISON: None FINDINGS: Sonographic evaluation of the right forearm does not demonstrate a hematoma. The right radial and ulnar arteries are patent IMPRESSION: Right forearm hematoma not visualized
--- NOTE | 2023-04-01 22:03 | EDPHYS ---
Physician Documentation [facility] Name: Nir Kang Age: 68 yrs Sex: Male : 1955 Arrival Date: 04/01/2023 Time: 19:52 Bed 18 Private MD: ED Physician Jaylon Vanessa HPI: 04/01 20:01 This 68 yrs old Male presents to ER via Unassigned with complaints of Post sp4 Surgical Pain - hand swelling. 20:44 5-year-old male presents with right hand swelling and hematoma after arterial puncture sp4 secondary to heart cath this afternoon. Patient reported some mild swelling around the arterial puncture site. Patient's family placed Cornelio wrap to avoid further bleeding. . Procedures Performed: 04/01/2023 at 15:15 1. Selective coronary angiogram. 2. PCI of severe mid LAD stenosis. I used proximal to distal 2.75 x 16, then 2.5 x 28 mm Synergy drug-eluting stents. Indications: Severe coronary artery disease with recent non-STEMI. Access: Right radial artery 6-Kazakh closed with TR band. Findings: 1. Left main; normal. 2. LAD; proximal diffuse 40% and then mid has about 20% to 30% and after right at the diagonal 2 branch takeoff, there is 90% stenosis, status post successful PCI as above and then there were multiple tandem lesions ranging between 80% to 90%, status post successful PCI as above and then distal LAD is with diffuse 40% to 50% stenosis, but SOFI-3 flow. 3. Left circumflex; ostial 50% and widely patent OM1 stent. 4. Normal LVEDP at 9 mmHg. Conclusion: 1. Severe mid LAD stenosis, status post successful PCI as above. Diagonal 2 branch was mildly jailed first with SOFI-3 flow. 2. Patent left circumflex stent. 3. Moderate coronary artery disease elsewhere. Plan: Aspirin, Plavix, high-dose statin. To follow up with me in the office in 1 week. Historical: - Allergies: 20:01 No Known Allergies; cm10 - PMHx: 20:01 diabetes mellitus; Hypercholesterolemia; Myocardial infarction; cm10 - PSHx: 20:01 heart catheterization; Cardiac Stents X2; cm10 - Immunization history:: Adult Immunizations unknown. - Social history:: Smoking status: Patient denies any tobacco usage or history of. - Family history:: not pertinent. ROS: 20:48 Constitutional: Negative for fever, chills, and weight loss, Cardiovascular: Negative sp4 for chest pain, palpitations, and edema, positive for right forearm hematoma at the site of arterial puncture 20:48 All other systems are negative. Exam: 20:48 Constitutional: This is a well developed, well nourished patient who is awake, alert, sp4 and in no acute distress. Head/Face: Normocephalic, atraumatic. Eyes: Pupils equal round and reactive to light, extra-ocular motions intact. Lids and lashes normal. Conjunctiva and sclera are not injected. Cornea within normal limits. Periorbital areas with no swelling, redness, or edema. ENT: Nares patent. No nasal discharge, no septal abnormalities noted. Tympanic membranes are normal and external auditory canals are clear. Oropharynx with no redness, swelling, or masses, exudates, or evidence of obstruction, uvula midline. Mucous membranes moist. Neck: Trachea midline, no thyromegaly or masses palpated, and no cervical lymphadenopathy. Supple, full range of motion without nuchal rigidity, or vertebral point tenderness. Chest/axilla: Normal chest wall appearance and motion. Nontender with no deformity. No lesions are appreciated. Cardiovascular: Regular rate and rhythm with a normal S1 and S2. No gallops, murmurs, or rubs. Normal PMI, no JVD. No pulse deficits. There is distal right forearm radial arterial puncture with discoloration and hematoma around there is no sign of tense hematoma no sign of active arterial bleeding, distal pulsation is preserved, pulsatile flow distal to arterial puncture is preserved. Right ulnar pulse is preserved. No signs of compartment syndrome intact capillary refill to all fingers of the right hand. Normal movement of the right hand Respiratory: Lungs have equal breath sounds bilaterally, clear to auscultation and percussion. No rales, rhonchi or wheezes noted. No increased work of breathing, no retractions or nasal flaring. Abdomen/GI: Soft, non-tender, with normal bowel sounds. No distension or tympany. No guarding or rebound. No evidence of tenderness throughout. Back: No spinal tenderness. No costovertebral tenderness. Skin: Warm, dry with normal turgor. Normal color with no rashes, no lesions, and no evidence of cellulitis. MS/ Extremity: Pulses equal, no cyanosis. Neurovascular intact. Full, normal range of motion. Neuro: Awake and alert, GCS 15, oriented to person, place, time, and situation. Cranial nerves II-XII grossly intact. Motor strength 5/5 in all extremities. Sensory grossly intact. Psych: Awake, alert, with orientation to person, place and time. Behavior, mood, and affect are within normal limits 23:00 ECG was reviewed by the Attending Physician. Normal sinus bradycardia at the rate of 52 sp4 EKG time 2255, sinus bradycardia with PVCs, otherwise normal EKG Vital Signs: 19:59 BP 113 / 76; Pulse 70; Resp 16; Temp 97.7; Pulse Ox 99% on R/A; Weight 105.23 kg; cm10 Height 5 ft. 10 in. ; Pain 0/10; 20:10 BP 143 / 98; Pulse 57; Resp 18 S; Pulse Ox 98% on R/A; ha1 21:10 BP 130 / 80; Pulse 57; Resp 16 S; Pulse Ox 98% on R/A; ha1 22:00 BP 136 / 79; Pulse 55; Resp 17 S; Pulse Ox 96% on R/A; ha1 19:59 Body Mass Index 33.29 (105.23 kg, 177.8 cm) cm10 19:59 Pain Scale: Adult cm10 MDM: 20:03 Patient medically screened. sp4 21:58 Differential Diagnosis Arterial puncture complication, right arm hematoma. Right arm sp4 vascular complication. Data reviewed: vital signs. ED course: Patient's chief deputy would like to keep patient in the hospital overnight for the arm to be observed and reassessed in the morning. Will request admitting service to keep patient overnight. Will do screening labs on the patient also screening EKG as well. . 04/01 21:57 Order name: Basic Metabolic Panel; Complete Time: 23:00 sp4 04/01 21:57 Order name: CBC with Diff; Complete Time: 23:00 sp4 04/01 21:57 Order name: PT-INR; Complete Time: 23:00 sp4 04/01 22:41 Order name: CBC with Automated Diff EDMS 04/01 22:41 Order name: CBC with Automated Diff EDMS 04/01 22:41 Order name: Comprehensive Metabolic Panel EDMS 04/01 22:41 Order name: Comprehensive Metabolic Panel EDTX 04/01 22:41 Order name: Magnesium EDTX 04/01 22:41 Order name: Magnesium EDTX 04/01 22:41 Order name: Protime (+INR) EDTX 04/01 22:41 Order name: Protime (+INR) EDTX 04/01 22:41 Order name: Urinalysis w/ reflexes EDTX 04/01 20:12 Order name: US Extrmty Nonvasular Limited; Complete Time: 21:50 sp4 04/01 21:57 Order name: EKG; Complete Time: 21:58 sp4 04/01 22:39 Order name: CONS Physician Consult EDTX 04/01 22:41 Order name: Heart Healthy EDTX 04/01 22:41 Order name: NPO EDTX 04/01 21:57 Order name: Cardiac monitoring; Complete Time: 22:46 sp4 04/01 21:57 Order name: EKG - Nurse/Tech; Complete Time: 22:46 sp4 04/01 21:57 Order name: IV Saline Lock; Complete Time: 22:46 sp4 04/01 21:57 Order name: Labs collected and sent; Complete Time: 22:47 sp4 04/01 21:57 Order name: O2 Per Protocol; Complete Time: 22:47 sp4 04/01 21:57 Order name: O2 Sat Monitoring; Complete Time: 22:47 sp4 EC:00 Rate is 52 beats/min. Rhythm is regular, Sinus bradycardia. QRS [place] is Normal. [place] sp4 interval is normal. QRS interval is normal. QT interval is normal. T waves are Normal. No ST changes noted. Clinical impression: No evidence of ischemia. Interpreted by me. Administered Medications: No medications were administered Disposition Summary: 04/01/23 22:03 Hospitalization Ordered Hospitalization Status: Observation sp4 Provider: Aric Palomo sp4 Location: Telemetry/MedSurg (observation) sp4 Condition: Stable sp4 Problem: new sp4 Symptoms: have improved sp4 Bed/Room Type: Standard sp4 Room Assignment: 217(04/01/23 22:40) cg Diagnosis - Nontraumatic hematoma of soft tissue sp4 - Hematoma at the arterial puncture site, right radial artery hematoma sp4 Forms: - Medication Reconciliation Form sp4 - SBAR form sp4 Signatures: Dispatcher [employer] EDMS Karthikeyan, Jyoti, BENJAMIN RN cg Jaylon Vanessa MD MD sp4 Caity Fisher RN RN cm10 Corrections: (The following items were deleted from the chart) 22:40 22:03 spRupert
--- NOTE | 2023-04-01 22:03 | ER ---
Nurse's Notes [facility] Name: Nir Kang Age: 68 yrs Sex: Male : 1955 Arrival Date: 04/01/2023 Time: 19:52 Bed 18 Private MD: Diagnosis: Nontraumatic hematoma of soft tissue;Hematoma at the arterial puncture site, right radial artery hematoma Presentation: 04/01 19:59 Chief complaint: Patient states: he had a heart cath today here and after they removed cm10 the pressure dressing pt started to have swelling to right arm. While here they applied pressure to his arm and the swelling decreased. Pt states that he was told that if he started having swelling again to apply pressure. Pt has pressure dressing noted to right arm. Pt denies any pain or bleeding. Pt arrived with arm in a dressing. Coronavirus screen: Vaccine status: Patient reports receiving the 2nd dose of the covid vaccine. Ebola Screen: Patient denies travel to an Ebola-affected area in the 21 days before illness onset. No symptoms or risks identified at this time. Initial Sepsis Screen: Does the patient meet any 2 criteria? No. Patient's initial sepsis screen is negative. Does the patient have a suspected source of infection? No. Patient's initial sepsis screen is negative. Risk Assessment: Do you want to hurt yourself or someone else? Patient reports no desire to harm self or others. Onset of symptoms was April 01, 2023. 19:59 Method Of Arrival: Ambulatory cm10 19:59 Acuity: DAGMAR 3 cm10 Triage Assessment: 20:05 General: Appears comfortable, Behavior is calm, cooperative. Pain: Denies pain. Neuro: ha1 Level of Consciousness is awake, alert, obeys commands, Oriented to person, place, time, situation. Cardiovascular: Reports pt. states " I had a procedure done a heart cath by Dr. Morelos and I am concern about the swelling on the hand" Capillary refill < 3 seconds in right fingers Patient's skin is warm and dry. Pulses are all present. are palpable in right radial artery. Historical: - Allergies: 20:01 No Known Allergies; cm10 - PMHx: 20:01 diabetes mellitus; Hypercholesterolemia; Myocardial infarction; cm10 - PSHx: 20:01 heart catheterization; Cardiac Stents X2; cm10 - Immunization history:: Adult Immunizations unknown. - Social history:: Smoking status: Patient denies any tobacco usage or history of. - Family history:: not pertinent. Screenin:03 [facility] ED Fall Risk Assessment (Adult) History of falling in the last 3 months, ha1 including since admission No falls in past 3 months (0 pts) Confusion or Disorientation No (0 pts) Intoxicated or Sedated No (0 pts) Impaired Gait No (0 pts) Mobility Assist Device Used No (0 pt) Altered Elimination No (0 pt) Score/Fall Risk Level 0 - 2 = Low Risk Oriented to surroundings, Maintained a safe environment, Educated pt \\T\\ family on fall prevention, incl call for assistance when getting out of bed. Abuse screen: Denies threats or abuse. Denies injuries from another. Nutritional screening: No deficits noted. Tuberculosis screening: No symptoms or risk factors identified. Assessment: 20:05 Reassessment: see triage assessment. ha1 20:55 Reassessment: Dr. Morelos's RN in the room. ha1 Vital Signs: 19:59 BP 113 / 76; Pulse 70; Resp 16; Temp 97.7; Pulse Ox 99% on R/A; Weight 105.23 kg; cm10 Height 5 ft. 10 in. ; Pain 0/10; 20:10 BP 143 / 98; Pulse 57; Resp 18 S; Pulse Ox 98% on R/A; ha1 21:10 BP 130 / 80; Pulse 57; Resp 16 S; Pulse Ox 98% on R/A; ha1 22:00 BP 136 / 79; Pulse 55; Resp 17 S; Pulse Ox 96% on R/A; ha1 19:59 Body Mass Index 33.29 (105.23 kg, 177.8 cm) cm10 19:59 Pain Scale: Adult cm10 ED Course: 19:53 Patient arrived in ED. am2 20:01 Jaylon Vanessa MD is Attending Physician. sp4 20:01 Triage completed. cm10 20:02 Arm band placed on Patient placed in waiting room. cm10 20:03 Patient has correct armband on for positive identification. Bed in low position. Call ha1 light in reach. Side rails up X 1. Adult w/ patient. 21:04 Angie Fullre, RN is Primary Nurse. ha1 21:07 US Extrmty Nonvasular Limited In Process Unspecified. EDMS 22:01 Aric Palomo MD is Hospitalizing Provider. sp4 22:30 No provider procedures requiring assistance completed. Inserted saline lock: 22 gauge ha1 in left antecubital area, using aseptic technique. Blood collected. 22:47 Basic Metabolic Panel Sent. ha1 22:47 CBC with Diff Sent. ha1 22:47 PT-INR Sent. ha1 23:00 Provided Education on: need for admit . ha1 23:11 Patient admitted, IV remains in place. ha1 Administered Medications: No medications were administered Medication: 23:10 VIS not applicable for this client. ha1 Outcome: 22:03 Decision to Hospitalize by Provider. sp4 23:09 Condition: stable ha1 23:09 Discharge instructions given to patient, family, Instructed on the need for admit, ha1 Demonstrated understanding of instructions. 23:20 Admitted to Med/surg accompanied by tech, via wheelchair, room 217, with chart, Report pf1 called to receiving nurse 23:50 Patient left the ED. pf1 Signatures: Dispatcher [employer] EDIL Deanne Kennedy am2 Angie Fuller, RN RN ha1 Vanita Almanza RN RN pf1 Jaylon Vanessa MD MD sp4 Caity Fisher RN RN cm10 Corrections: (The following items were deleted from the chart) 20:09 19:59 Chief complaint: Patient states: he had a heart cath today here and after they cm10 removed the pressure dressing pt started to have swelling to right arm. While here they applied pressure to his arm and the swelling decreased. Pt states that he was told that if he started having swelling again to apply pressure. Pt has pressure dressing noted to right arm. Pt denies any pain or bleeding. cm10
[2023-04-01] MEDS ORDERED: ZOLPIDEM TARTRATE 5 MG TABLET PO PRN (22:39)
[2023-04-01] MEDS ORDERED: ONDANSETRON 4 MG/2 ML VIAL IV PRN (22:39)
--- NOTE | 2023-04-01 22:41 | P.HP ---
Certification for Inpatient Patient admitted to: Observation Patient will require the following post-hospital care: None Practitioner: I am a practitioner with admitting privileges, knowledge of patient current condition, hospital course, and medical plan of care. Services: Services provided to patient in accordance with Admission requirements found in Title 42 Section 412.3 of the Code of Federal Regulations Patient History Date of Service: 04/02/23 Reason for admission: hematoma History of Present Illness: 68-year-old male with a past medical history of CAD, ID, diabetes mellitus, hyperlipidemia, presents to the emergency room for right hand hematoma after cardiac procedure today. Patient has a Cornelio wrap to the right forearm to prevent swelling, bleeding. Patient denies any other symptoms, no reported chest pain, shortness of breath, leg swelling, fever, chills, abdominal pain. Plan to admit for hematoma right forearm, radial artery, Right upper extremity Doppler IMPRESSION: Right forearm hematoma not visualized EC:00 Rate is 52 beats/min. Rhythm is regular, Sinus bradycardia. QRS [place] is Normal. [place] sp4 interval is normal. QRS interval is normal. QT interval is normal. T waves are Normal. No ST changes noted. Clinical impression: No evidence of ischemia. I Patient is status post PCI Selective coronary angiogram. 2. PCI of severe mid LAD stenosis. I used proximal to distal 2.75 x 16, then 2.5 x 28 mm Synergy drug-eluting stents. Indications: Severe coronary artery disease with recent non-STEMI. Access: Right radial artery 6-[place] closed with TR band. Findings: 1. Left main; normal. 2. LAD; proximal diffuse 40% and then mid has about 20% to 30% and after right at the diagonal 2 branch takeoff, there is 90% stenosis, status post successful PCI as above and then there were multiple tandem lesions ranging between 80% to 90%, status post successful PCI as above and then distal LAD is with diffuse 40% to 50% s tenosis, but SOFI-3 flow. 3. Left circumflex; ostial 50% and widely patent OM1 stent. 4. Normal LVEDP at 9 mmHg. Conclusion: 1. Severe mid LAD stenosis, status post successful PCI as above. Diagonal 2 branch was mildly jailed first with SOFI-3 flow. 2. Patent left circumflex stent. 3. Moderate coronary artery disease elsewhere. Plan: Aspirin, Plavix, high-dose statin. To follow up with me in the office in 1 week. Allergies No Known Allergies Allergy (Unverified 03/26/23 21:43) Home Medications: Aspirin [Aspirin EC 81 MG] 81 mg PO DAILY #1 03/29/23 Clopidogrel Bisulfate [Plavix] 75 mg PO DAILY #30 tab 03/29/23 Metoprolol Tartrate [Lopressor*] 25 mg PO BID 6AM 6PM #60 tab 03/29/23 Atorvastatin Calcium [Lipitor] 40 mg PO DAILY 04/01/23 - Past Medical/Surgical History -: Hyperlipidemia -: Diabetes mellitus type 2diet controlled -: None Psychosocial/ Personal History: Lives at home with family - Family History Father -: Heart disease Mother -: Cancer - Social History Alcohol use: No CD- Drugs: No Caffeine use: Yes Review of Systems 10-point ROS is otherwise unremarkable Physical Examination - Physical Exam General: Alert, In no apparent distress, Oriented x3 HEENT: Atraumatic, Normocephalic, PERRLA Neck: Supple, 2+ carotid pulse no bruit, JVD not distended Respiratory: Clear to auscultation bilaterally, Normal air movement Cardiovascular: No edema, Normal pulses Capillary refill: <2 Seconds Gastrointestinal: Normal bowel sounds, Soft and benign Musculoskeletal: No clubbing, No swelling Integumentary: Other (RUE hematoma resolved with cornelio wrap) Neurological: Normal strength at 5/5 x4 extr, Cranial nerves 3-12 intact Assessment and Plan - Plan Assessment plan Right upper extremity hematoma status post PCI today Severe CAD, HX ID, Sinus bradycardia EKG rate 52 diabetes mellitus, ED hyperlipidemia, Assessment plan Right upper extremity hematoma status post PCI today Right upper extremity Doppler IMPRESSION: Right forearm hematoma not visualized Severe CAD, HX ID, Sinus bradycardia EKG rate 52 Cardiology consulted Telemetry EC:00 Rate is 52 beats/min. Rhythm is regular, Sinus bradycardia. QRS [place] is Normal. [place] sp4 interval is normal. QRS interval is normal. QT interval is normal. T waves are Normal. No ST changes noted. Clinical impression: No evidence of ischemia. Patient is status post PCI Selective coronary angiogram. 2. PCI of severe mid LAD stenosis. I used proximal to distal 2.75 x 16, then 2.5 x 28 mm Synergy drug-eluting stents. Indications: Severe coronary artery disease with recent non-STEMI. Access: Right radial artery 6-Tanzanian closed with TR band. Findings: 1. Left main; normal. 2. LAD; proximal diffuse 40% and then mid has about 20% to 30% and after right at the diagonal 2 branch takeoff, there is 90% stenosis, status post successful PCI as above and then there were multiple tandem lesions ranging between 80% to 90%, status post successful PCI as above and then distal LAD is with diffuse 40% to 50% stenosis, but SOFI-3 flow. 3. Left circumflex; ostial 50% and widely patent OM1 stent. 4. Normal LVEDP at 9 mmHg. Conclusion: 1. Severe mid LAD stenosis, status post successful PCI as above. Diagonal 2 branch was mildly jailed first with SOFI-3 flow. 2. Patent left circumflex stent. 3. Moderate coronary artery disease elsewhere. Plan: Aspirin, Plavix, high-dose statin. To follow up with me in the office in 1 week diabetes mellitus, ED hyperlipidemia, Resume appropriate home meds Diet n.p.o. after midnight Full code DVT resume home Plavix aspirin Discharge Plan: Home - Advance Directives Does patient have a Living Will: No Does patient have a Durable POA for Healthcare: No - Code Status/Comfort Care Code Status: Full Code Physician Review: Patient Assessed, Agree with Above Assessment and Plan Critical Care: No Time Spent Managing Pts Care (In Minutes): 50
[2023-04-01 22:47] LABS: Absolute Lymphocytes (CBC) 2.2 K/uL (0.7-4.9); Hematocrit 43.5 % (39.6-49.0); Lymphocytes % 32.6 % (15.3-44.8); MCV 88.6 fL (80-100); MPV 9.1 fL (7.6-11.3); Platelets 181 thou/uL (152-406); RBC Red Blood Cell Count 4.91 M/uL (4.33-5.43)
[2023-04-01 22:51] LABS: Protime INR 1.13
[2023-04-01 22:58] LABS: Potassium 3.8 mEq/L (3.5-5.1)
[2023-04-02 00:23] VITALS: BMI 33.6
[2023-04-02 03:36] LABS: Protime INR 1.11
[2023-04-02 03:38] LABS: Absolute Lymphocytes (CBC) 1.5 K/uL (0.7-4.9); Hematocrit 40.7 % (39.6-49.0); Lymphocytes % 28.7 % (15.3-44.8); MCV 88.5 fL (80-100); MPV 9.1 fL (7.6-11.3); Platelets 141 thou/uL (152-406)
[2023-04-02 03:48] LABS: Albumin 3.3 g/dL (3.4-5.0); Bilirubin Total 0.3 mg/dL (0.2-1.0); Potassium 3.2 mEq/L (3.5-5.1); Protein, Total 6.5 g/dL (6.4-8.2)
[2023-04-02] MEDS: KCL 20 MEQ/100 mL IVPB 20 MEQ/100 ML BAG IV SCH ×2 (07:00→09:00)
[2023-04-02] MEDS ORDERED: PNEUMOCOCCAL VACCINE 0.5 ML IMVAC ONE (08:00)
[2023-04-02 10:58] VITALS: O2SAT 96
[2023-04-02] MEDS ORDERED: POTASSIUM CL SA 10 MEQ TAB PO ONE (11:00)
[2023-04-02 13:06] VITALS: BP 137/73; TEMP 97.8
--- NOTE | 2023-04-02 15:43 | P.DS ---
Admission Date: 04/01/23 Discharge Date: 04/02/23 Disposition: ROUTINE DISCHARGE Discharge Condition: FAIR Reason for Admission: hematoma - Problems (1) Traumatic ecchymosis of right forearm Current Visit: Yes Status: Acute (2) CAD (coronary artery disease), [place] coronary artery Current Visit: Yes Status: Acute Brief History of Present Illness: 68-year-old male with a past medical history of CAD, [place], diabetes mellitus, hyperlipidemia, presents to the emergency room for right hand hematoma which After cardiac cath. Patient underwent staged PCI, and noted increased dark discoloration on his forearm which got worse within 24 hours of the procedure. Patient had a Cornelio wrap to the right forearm to prevent swelling, bleeding. Patient denies any other symptoms, no reported chest pain, shortness of breath, leg swelling, fever, chills, abdominal pain. Right upper extremity Doppler IMPRESSION: Right forearm hematoma not visualized. Cardiology Dr. Morelos was contacted who recommended observation as inpatient. Patient was hospitalized for further monitoring.. Hospital Course: Patient was placed under observation on the medical floor. His forearm discoloration was monitored. There was no swelling or increased pain. Vitals were stable. No decreased joint mobility. Patient has right distal forearm bruise/hemosiderin staining which is stable. Case discussed with Dr. Morelos. Patient is discharged for outpatient follow-up with Dr. Morelos. Metoprolol, aspirin and Plavix and statins are resumed on discharge. Vital Signs/Physical Exam: Temp Pulse Resp BP Pulse Ox 97.8 F 74 16 137/73 96 04/02/23 12:00 04/02/23 12:00 04/02/23 12:00 04/02/23 12:00 04/02/23 12:00 General: Alert, In no apparent distress, Oriented x3 HEENT: PERRLA, Mucous membr. moist/pink Neck: Supple, JVD not distended Respiratory: Clear to auscultation bilaterally, Normal air movement, Crackles/rales Cardiovascular: No edema, Normal pulses, Normal S1 S2 Capillary refill: <2 Seconds Gastrointestinal: Normal bowel sounds, Soft and benign, Non-distended, No tenderness Musculoskeletal: No swelling Integumentary: Other (Bruise/hemosiderin staining-ventral aspect of right distal forearm.) Neurological: Normal speech, Normal strength at 5/5 x4 extr Laboratory Data at Discharge: WBC 5.10 thou/uL (4.3-10.9) 04/02/23 02:17 Hgb 13.5 g/dL (13.6-17.9) L 04/02/23 02:17 Hct 40.7 % (39.6-49.0) 04/02/23 02:17 Plt Count 141 thou/uL (152-406) L 04/02/23 02:17 PT 12.2 SECONDS (9.5-12.5) 04/02/23 02:17 INR 1.11 04/02/23 02:17 Sodium 137 mEq/L (136-145) 04/02/23 02:17 Potassium 3.2 mEq/L (3.5-5.1) L D 04/02/23 02:17 BUN 20 mg/dL (7-18) H 04/02/23 02:17 Creatinine 0.98 mg/dL (0.70-1.30) 04/02/23 02:17 Glucose 151 mg/dL (74-106) H 04/02/23 02:17 Magnesium 2.0 mg/dL (1.6-2.4) 04/02/23 02:17 Total Bilirubin 0.3 mg/dL (0.2-1.0) 04/02/23 02:17 AST 14 U/L (15-37) L 04/02/23 02:17 ALT 37 U/L (16-61) 04/02/23 02:17 Alkaline Phosphatase 40 U/L (45-117) L 04/02/23 02:17 Home Medications: Aspirin [Aspirin EC 81 MG] 81 mg PO DAILY #1 03/29/23 Clopidogrel Bisulfate [Plavix] 75 mg PO DAILY #30 tab 03/29/23 Metoprolol Tartrate [Lopressor*] 25 mg PO BID 6AM 6PM #60 tab 03/29/23 Atorvastatin Calcium [Lipitor] 40 mg PO DAILY 04/01/23 Diet: AHA Activity: Ad faisal Followup: Jose Morelos MD [ACTIVE - CAN ADMIT] - 1 Week Patti Bear NP [Primary Care Provider] - Time spent managing pt's care (in minutes): 22
--- NOTE | 2023-04-03 18:13 | EKG ---
Test Date: 2023-04-01 Test Time: 22:55:55 Game Artist: CONY MEASUREMENT RESULTS: Intervals: Rate: 52 HI: 158 QRSD: 108 QT: 452 QTc: 420 [place]: P: 50 HI: 158 QRS: 33 T: 81 INTERPRETIVE STATEMENTS: Sinus bradycardia with occasional premature ventricular complexes Otherwise normal ECG Compared to ECG 03/26/2023 17:32:00 Ventricular premature complex(es) now present Sinus rhythm no longer present Atrial premature complex(es) no longer present Electronically Signed On 04-03-23 18:11:17 CDT by Jose Morelos
== END 2023-04-02 16:30 | disposition home or self-care (01) ==
LOC: ER 19:52 → 2ND 22:36
PROVIDERS: ADMIT Internal Medicine; ATTEND Internal Medicine
DX: L76.32 Postprocedural hematoma of skin and subcutaneous tissue following other procedure (principal); I25.10 Atherosclerotic heart disease of native coronary artery without angina pectoris; I25.2 Old myocardial infarction; E11.9 Type 2 diabetes mellitus without complications; E78.5 Hyperlipidemia, unspecified; R00.1 Bradycardia, unspecified; S50.11XA Contusion of right forearm, initial encounter; X58.XXXA Exposure to other specified factors, initial encounter; Y93.9 Activity, unspecified; Y92.89 Other specified places as the place of occurrence of the external cause; Z98.890 Other specified postprocedural states
CPT/HCPCS: 36415; 76882; 80048; 80053; 83735; 85025; 85610; 93005; 99285